=== PATIENT | male | born 1990 | race Hispanic/Latino ===

== ENCOUNTER 2023-03-09 13:16 | Emergency (ER) | payer OTHER ==
[~2023-03-09] VITALS: Ht 177.8 cm; Wt 95.3 kg
[2023-03-09 15:27] VITALS: BP 124/76; PULSE 60; RESP 20; O2SAT 100
[2023-03-09] MEDS ORDERED: CEPH250C3 PO (16:11)
[2023-03-09] MEDS ORDERED: BACITRACIN 1 EACH PACKET TP ONE (16:11)
== END 2023-03-09 17:20 | disposition home or self-care (01) ==
LOC: EDH 13:16
DX: S01.112A Laceration without foreign body of left eyelid and periocular area, initial encounter (principal); X58.XXXA Exposure to other specified factors, initial encounter; Y93.89 Activity, other specified; Y92.89 Other specified places as the place of occurrence of the external cause; Y99.8 Other external cause status
CPT/HCPCS: 12011